=== PATIENT | male | born 1945 | race Caucasian/White ===

== ENCOUNTER 2017-11-11 11:26 | Day surgery (SDC) | payer MEDICARE, OTHER ==
[2017-11-08 10:08] LABS: ALBUMIN 4.3 g/dL (3.4-5.0); ANION GAP 8 mmol/L (5-15); CHLORIDE 107 mmol/L (98-107)
[2017-11-08 10:11] LABS: ALANINE AMINOTRANSFERASE 20 U/L (12-78); ALKALINE PHOSPHATASE 73 U/L (45-117); BILIRUBIN,TOTAL 0.6 mg/dL (0.2-1.0); CREATININE 1.72 mg/dL (0.7-1.3); TOTAL PROTEIN 6.6 g/dL (6.4-8.2)
[~2017-11-11] VITALS: Ht 177.8 cm; Wt 85.2 kg
[~2017-11-11 11:26] MED LIST: ALLO300T PO; ATOR10TA PO; FENO134C PO; GLIP5TAB10 PO; LISI-167 PO
[2017-11-11] MEDS ORDERED: FENTANYL PF 250 MCG/5ML ONE (11:42)
[2017-11-11] MEDS ORDERED: MIDAZOLAM 1 MG/ML, 2ML ONE (11:42)
[2017-11-11] MEDS ORDERED: PROPOFOL 10 MG/ML, 20ML ONE (11:43)
[2017-11-11] MEDS ORDERED: ROCURONIUM 10MG/ML,5ML ONE (11:44)
[2017-11-11] MEDS ORDERED: WATER-INJECTION,STERILE 10 ML IV ONE (11:45)
[2017-11-11] MEDS ORDERED: GLYCOPYRROLATE 0.4 MG/2 ML, 2ML ONE (11:45)
[2017-11-11] MEDS ORDERED: NEOSTIGMINE 1 MG/ML, 10ML ONE (11:45)
[2017-11-11] MEDS ORDERED: CEFAZOLIN 1,000 MG ONE ×2 (11:45)
[2017-11-11 12:11] VITALS: BP 143/83
[2017-11-11] MEDS ORDERED: LACTATED RINGERS 1,000 ML IV SCH (12:18)
[2017-11-11] MEDS ORDERED: LIDOCAINE-MPF 1%, 2ML INFIL ONE (12:30)
[2017-11-11] MEDS ORDERED: EPINEPHRINE 1 MG/ML, 1ML ONE (12:42)
[2017-11-11] MEDS ORDERED: BUPIVACAINE/PF 0.25% ONE (12:42)
[2017-11-11] MEDS ORDERED: OXYcodone 5 MG/5 ML ORAL.SOL UDC PO PRN (13:00)
[2017-11-11] MEDS ORDERED: ACETAMINOPHEN 325 MG TABLET PO PRN (13:00)
[2017-11-11] MEDS ORDERED: HYDROmorphone 1 MG/ML, 1ML IV PRN (13:00)
[2017-11-11] MEDS ORDERED: LABETALOL 5MG/ML, 20ML IV PRN (13:00)
[2017-11-11] MEDS ORDERED: FENTANYL PF 100 MCG/2ML IV PRN (13:00)
[2017-11-11] MEDS ORDERED: MEPERIDINE/PF 25MG/0.5ML IVPush PRN (13:00)
[2017-11-11] MEDS ORDERED: morphine SULFATE 10 MG/ML, 1ML IV PRN (13:00)
[2017-11-11] MEDS ORDERED: ONDANSETRON 2MG/ML, 2ML IVPush PRN ×2 (13:00→14:00)
[2017-11-11] MEDS ORDERED: hydrALAzine 20 MG/ML, 1ML IV PRN (13:00)
[2017-11-11] MEDS ORDERED: PROMETHAZINE 12.5 MG SUPP PR PRN (13:00)
[2017-11-11] MEDS ORDERED: PROMETHAZINE 25 MG/ML, 1ML IV PRN (13:00)
[2017-11-11] MEDS ORDERED: PHENYLEPHRINE 10 MG/ML ONE (13:11)
[2017-11-11] MEDS ORDERED: BUPIVACAINE/PF 0.25% INFIL ONE (13:18)
[2017-11-11] MEDS ORDERED: HYDROcodone/APAP 5/325 TABLET PO PRN (14:00)
[2017-11-11] MEDS ORDERED: morphine SULFATE 10 MG/ML, 1ML IVPush PRN (14:00)
[2017-11-11] MEDS ORDERED: KETOROLAC 30 MG/1 ML IVPush PRN (14:00)
== END 2017-11-11 16:00 | disposition home or self-care (01) ==
LOC: OR 11:26
PROVIDERS: ATTEND Surgery
DX: C91.10 Chronic lymphocytic leukemia of B-cell type not having achieved remission (principal); I10 Essential (primary) hypertension; E78.5 Hyperlipidemia, unspecified; E11.21 Type 2 diabetes mellitus with diabetic nephropathy; M10.9 Gout, unspecified; Z79.899 Other long term (current) drug therapy
CPT/HCPCS: 36415; 38525; 80053; 82962; 88305; 88333; 88334; 93005; J0171; J0690; J2250; J2370; J2704; J2710; J3010; J3490; J7120

== ENCOUNTER 2021-01-06 13:26 | Emergency (ER) | payer MEDICARE, OTHER ==
[~2021-01-06] VITALS: Ht 177.8 cm; Wt 80.0 kg
--- NOTE | 2021-01-06 13:37 | NUR ---
PT STRAIGHT BACK FROM [facility] AFTER EKG SHOWED HR 140'S. ONCOLOGY PT. PT POSTIONED TO COMFORT IN BED. NADN. ATTACHED TO MONITORS. HR 140'S. VSS. AWAITING ORDERS.
--- NOTE | 2021-01-06 15:20 | NUR ---
PT SIGNED AMA PAPERWORK AND STATED UNDERSTANDING OF POTENTIAL CONSEQUENCES.
[2021-01-06 15:22] VITALS: BP 133/94
== END 2021-01-06 15:25 | disposition left against medical advice (07) ==
LOC: ED 15:12
DX: R00.0 Tachycardia, unspecified (principal); R00.2 Palpitations
CPT/HCPCS: 99281

== ENCOUNTER → 2021-01-06 | Outpatient (CLI) | payer MEDICARE, OTHER | END | disposition home or self-care (01) | LOC: STAR 12:47 | PROVIDERS: ATTEND Internal Medicine Hematology & Oncology | DX: Z01.818 Encounter for other preprocedural examination (principal); C91.10 Chronic lymphocytic leukemia of B-cell type not having achieved remission; R00.0 Tachycardia, unspecified; I44.39 Other atrioventricular block; I25.2 Old myocardial infarction; I48.92 Unspecified atrial flutter | CPT/HCPCS: 93005 ==